=== PATIENT | female | born 1940 | race Caucasian/White ===

== ENCOUNTER → 2021-01-19 14:08 | Outpatient (BNVA) | payer MEDICARE, BC, SELFPAY | PROVIDERS: Family Provider Family Medicine; PCP Nurse Practitioner Family; Visit Provider Nurse Practitioner | DX: R29.6 Repeated falls (principal); G72.9 Myopathy, unspecified; R53.1 Weakness; R20.0 Anesthesia of skin; R20.2 Paresthesia of skin | CPT/HCPCS: 99205 ==

== ENCOUNTER → 2021-02-03 09:20 | Outpatient (BNVA) | payer MEDICARE, BC, SELFPAY | PROVIDERS: Family Provider Family Medicine; PCP Nurse Practitioner Family; Referring Provider Nurse Practitioner; Visit Provider Specialist | DX: G62.89 Other specified polyneuropathies; M54.5 Low back pain; M25.562 Pain in left knee; M25.561 Pain in right knee; Z96.652 Presence of left artificial knee joint; Z98.890 Other specified postprocedural states | CPT/HCPCS: 95909 ==

== ENCOUNTER → 2021-06-12 11:28 | Outpatient (BNVA) | payer MEDICARE, BC, SELFPAY | PROVIDERS: Family Provider Family Medicine; PCP Nurse Practitioner Family; Visit Provider Nurse Practitioner | DX: R53.1 Weakness (principal); G62.9 Polyneuropathy, unspecified; R29.6 Repeated falls | CPT/HCPCS: 99213 ==

== ENCOUNTER → 2021-10-21 09:19 | Outpatient (BNVA) | payer MEDICARE, BC, SELFPAY | PROVIDERS: Family Provider Family Medicine; PCP Nurse Practitioner Family; Visit Provider Nurse Practitioner | DX: G62.89 Other specified polyneuropathies (principal); R51.9 Headache, unspecified | CPT/HCPCS: 99213; 99214 ==

== ENCOUNTER → 2022-04-14 08:24 | Outpatient (BNVA) | payer MEDICARE, BC, SELFPAY | PROVIDERS: Family Provider Family Medicine; PCP Nurse Practitioner Family; Visit Provider Nurse Practitioner | DX: G62.9 Polyneuropathy, unspecified (principal); M54.9 Dorsalgia, unspecified; R29.6 Repeated falls | CPT/HCPCS: 99214 ==

== ENCOUNTER → 2024-09-13 08:05 | Outpatient (BNVA) | payer MEDICARE, BC, SELFPAY | PROVIDERS: Family Provider Family Medicine; PCP Nurse Practitioner Family; Visit Provider Specialist | DX: M54.81 Occipital neuralgia (principal); G60.3 Idiopathic progressive neuropathy; M54.9 Dorsalgia, unspecified; G72.9 Myopathy, unspecified; R29.6 Repeated falls | CPT/HCPCS: 64405; 64450; 99215 ==